=== PATIENT | female | born 1995 | race African-American/Black ===

== ENCOUNTER 2017-12-30 23:40 | Emergency (ER) | payer BC ==
[2017-12-31 00:14] VITALS: BP 111/61; PULSE 70; TEMP 97.9; BMI 20.1
[2017-12-31] MEDS ORDERED: FAMOTIDINE 20 MG TABLET PO ONE (01:29)
--- NOTE | 2017-12-31 01:29 | PDOC ---
History of Present Illness - General Chief Complaint: Pain Stated Complaint: EPIGASTRIC PAIN Time Seen by Provider: 12/31/17 00:41 - History of Present Illness Initial Comments: This 22-year-old woman with no significant past medical history presents with 2 week history of epigastric pain. Patient cannot clearly relate pain as improving or worsening with meals. No change in pain with position; patient states that pain is intermittent and improves without intervention at times. She denies alcohol use or overuse of nonsteroidal anti-inflammatory medications. She rarely has nausea and has not vomited. No history of diarrhea or constipation. No fever/chills. No previous history of GERD/ gastritis/peptic ulcer disease. Patient states that her last menstrual period was approximately 11/30/17. Although her periods have been irregular, she had bleeding for approximately 7 days which is typical of her usual menstrual periods. She reportedly had a positive at home urine test but had this repeated at [facility]: She was told there that the test was negative for . Past History - Past Medical History Allergies/Adverse Reactions: Allergies Allergy/AdvReac Type Severity Reaction Status Date / Time No Known Allergies Allergy Verified 02/15/14 21:55 Home Medications: Ambulatory Orders Famotidine [Pepcid] 40 mg PO DAILY #20 tablet 12/31/17 COPD: No - Immunization History Immunization Up to Date: Yes - Suicide/Smoking/Psychosocial Hx Smoking History: Former smoker Have you smoked in the past 12 months: No Number of Cigarettes Smoked Daily: 1 Information on smoking cessation initiated: No Substance Use Type: None Review of Systems - Review of Systems Able to Perform ROS?: Yes Comments:: 12 point review of systems is negative except for what is noted in the history of present illness *Physical Exam - Vital Signs Last Vital Signs Temp Pulse Resp BP Pulse Ox 97.9 F 70 16 111/61 100 12/30/17 23:41 12/30/17 23:41 12/30/17 23:41 12/30/17 23:41 12/30/17 23:41 - Physical Exam Comments: GENERAL: An adult female, alert and oriented 3, in no acute distress HEAD: Normal with no signs of trauma. EYES: PERRLA, EOMI, sclera anicteric, conjunctiva clear. ENT: Ears normal, nares patent, oropharynx clear without exudates. Moist mucous membranes. NECK: Normal range of motion, supple without lymphadenopathy, JVD, or masses. LUNGS: Breath sounds equal, clear to auscultation bilaterally. No wheezes, and no crackles. HEART:Regular rate and rhythm, normal S1 and S2 without murmur, rub or gallop. ABDOMEN:.normal bowel sounds; mild epigastric tenderness without rebound or involuntary guarding; no Eldridge's sign. No other tenderness/masses EXTREMITIES: Normal range of motion, no edema. No clubbing or cyanosis. No erythema, or tenderness. NEUROLOGICAL: Cranial nerves II through XII grossly intact. Normal speech. No focal neurological deficits. MUSCULOSKELETAL: Back non-tender to palpation, no CVA tenderness SKIN: Warm, Dry, normal turgor, no rashes or lesions noted. Progress Note - Progress Note Progress Note: Patient given Pepcid 40 mg by mouth; UA dipstick is completely normal and PGU is negative. Clinical presentation most consistent with either GERD/mild gastritis or very early peptic ulcer disease. 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 (patient has no medical follow-up; she is been given 's referral information for follow-up within the next 5-7 days.) If the patient has worsening gastric discomfort or develops new vomiting/fever, she should return to the ER *DC/Admit/Observation/Transfer Diagnosis at time of Disposition: Epigastric pain - Discharge Dispostion Disposition: HOME Condition at time of disposition: Stable - Prescriptions Prescriptions: Famotidine [Pepcid] 40 mg PO DAILY #20 tablet - Referrals Referrals: Esau Houser DO [Staff Physician] - - Patient Instructions Printed Discharge Instructions: DI for Epigastric Pain Additional Instructions: Pepcid 40 mg daily Eat 6 small meals each day; avoid smoking/alcohol Elevate head with extra pillow at night Return to ER if you have severe abdominal pain, vomiting or fever Follow-up with Dr Houser(stomach doctor) within the next week - Post Discharge Activity
[2017-12-31] MEDS ORDERED: FAMOTIDINE 20 MG TABLET ONE (01:31)
[2017-12-31 02:06] LABS: URINE APPEARANCE CLEAR; URINE BILIRUBIN NEGATIVE (<2.0 mg/dL); URINE COLOR COLORLESS; URINE GLUCOSE (UA) NEGATIVE (NEGATIVE); URINE KETONE NEGATIVE (NEGATIVE); URINE LEUK ESTERASE NEGATIVE (NEGATIVE); URINE NITRITE NEGATIVE (NEGATIVE); URINE PROTEIN NEGATIVE (NEGATIVE); URINE UROBILINOGEN NEGATIVE mg/dL (0.2-1.0)
== END 2017-12-31 02:31 | disposition home or self-care (01) ==
LOC: FER 23:40
DX: R10.13 Epigastric pain (principal)
CPT/HCPCS: 81003; 84703; 99282-25

== ENCOUNTER 2019-11-02 18:50 | Inpatient (IN) | payer BC ==
[2019-11-02 20:51] LABS: BASO % 0.2 % (0-2.0); EOS % 0.5 % (0-4.5); HEMATOCRIT 31.8 % (32.4-45.2); HEMOGLOBIN 10.2 GM/dL (10.7-15.3); LYMPH % 18.9 % (8-40); MCH 26.6 pg (25.7-33.7); MCHC 32.1 g/dl (32.0-36.0); MEAN CELL VOLUME 82.7 fl (80-96); MEAN PLT VOLUME 8.7 fl (7.5-11.1); MONO % 8.6 % (3.8-10.2); NEUT % 71.8 % (42.8-82.8); PLATELET COUNT 231 K/MM3 (134-434); RBC 3.84 M/mm3 (3.60-5.2); RDW 13.2 % (11.6-15.6)
[2019-11-02 20:57] VITALS: BMI 25.5
[2019-11-02 21:03] LABS: INR 0.97 (0.83-1.09); PROTHROMBIN TIME (PATIENT) 11.4 SEC (9.7-13.0)
[2019-11-02 21:06] LABS: ACTIVATED PTT 27.6 SECONDS (25.2-36.5)
[2019-11-02 21:18] LABS: BLOOD UREA NITROGEN 8.3 mg/dL (7-18); CALCIUM 8.8 mg/dL (8.5-10.1); CREATININE 0.5 mg/dL (0.55-1.3); POTASSIUM 3.9 mmol/L (3.5-5.1)
--- NOTE | 2019-11-02 22:02 | HP ---
Past Medical History - Primary Care Physician PCP:: Bridger Naik - Admission Chief Complaint: 40,3 weeks, oligohydramnions, for labor induction History of Present Illness: 23yo f 40.3 weeks, with THERESE 5 referred for induction of labor , cx 2 cm 70 vx -3 mi, fhr cat 1, irregular contraction, risks associated with induction discussed History Source: Patient Limitations to Obtaining History: No Limitations - Past Medical History ...: 1 ...Para: 0 ...Term: 0 ...: 0 ...Spon : 0 ...Induced : 0 ...Living Children: 0 ...Multiple Gestation: 0 ...LMP: 01/13/19 ... Weeks Gestation by Dates: 41.6 ...EDC by Dates: 10/20/19 ...EDC by Sono: 10/30/19 - Past Surgical History Hx Myomectomy: No Hx Transabdominal Cerclage: No - Smoking History Smoking history: Never smoked Have you smoked in the past 12 months: No Aproximately how many cigarettes per day: 1 - Alcohol/Substance Use Hx Alcohol Use: No - Social History History of Recent Travel: No Home Medications - Allergies Allergies/Adverse Reactions: Allergies Allergy/AdvReac Type Severity Reaction Status Date / Time No Known Allergies Allergy Verified 02/15/14 21:55 - Home Medications Home Medications: Ambulatory Orders Famotidine [Pepcid] 40 mg PO DAILY #20 tablet 12/31/17 Review of Systems - Review of Systems Constitutional: reports: No Symptoms Eyes: reports: No Symptoms HENT: reports: No Symptoms Neck: reports: No Symptoms Cardiovascular: reports: No Symptoms Respiratory: reports: No Symptoms Gastrointestinal: reports: No Symptoms Genitourinary: reports: No Symptoms Breasts: reports: No Symptoms Reported Musculoskeletal: reports: No Symptoms Integumentary: reports: No Symptoms Neurological: reports: No Symptoms Endocrine: reports: No Symptoms Hematology/Lymphatic: reports: No Symptoms Psychiatric: reports: No Symptoms Physical Exam - Maternity Vital Signs: Vital Signs Temperature 98.1 F 11/02/19 20:49 Pulse Rate 81 11/02/19 20:49 Respiratory Rate 18 11/02/19 20:49 Blood Pressure 125/76 11/02/19 20:49 O2 Sat by Pulse Oximetry (%) Constitutional: Yes: Well Nourished, No Distress, Calm Eyes: Yes: WNL, Conjunctiva Clear, EOM Intact HENT: Yes: WNL, Atraumatic, Normocephalic Neck: Yes: WNL, Supple, Trachea Midline Cardiovascular: Yes: WNL, Regular Rate and Rhythm Breast(s): Yes: WNL - Abdominal Exam/OB Fundal Height: 38 Number of Fetuses: Single Presentation: Vertex Contractions: Yes Regularity: Irregular Intensity: Unaware Monitor Mode: External Heart Rate Location: [facility] Category: I Accelerations: Non-Uniform Decelerations: None - Vaginal Exam/OB Vaginal Bleeding: No Speculum Exam: No Dilatation (cm): 2 Effacement (%): 70 Amniotic Membrane Status: Intact Presentation: Vertex/Position Station: -3 - Physical Exam Edema: Yes Edema: LLE: Trace, RLE: Trace Deep Tendon Reflex Grade: Normal +2 ...Motor Strength: WNL Psychiatric: Yes: WNL - Labs Lab Results: CBC, BMP 11/02/19 20:15 11/02/19 20:15 Hemorrhage Risk Assessment - Risk Factors Medium Risk Factors: Yes: None High Risk Factors: Yes: None Risk Score: 1 Risk Level: Medium Risk Problem List - Problems (1) Post term over 40 weeks Code(s): O48.0 - POST-TERM (2) Oligohydramnios antepartum Code(s): O41.00X0 - OLIGOHYDRAMNIOS, UNSP TRIMESTER, NOT APPLICABLE OR UNSP Qualifiers: Fetus number: single or unspecified fetus Qualified Code(s): O41.00X0 - Oligohydramnios, unspecified trimester, not applicable or unspecified Assessment/Plan admit fhm cervidil induction
[2019-11-02] MEDS: DEXTROSE 5%-LACTATED RINGERS 1,000 ML IV SCH (23:01)
[2019-11-02] MEDS ORDERED: PROMETHAZINE HCL 25 MG/1 ML VIAL IVPUSH ONE (23:37)
[2019-11-02] MEDS ORDERED: BUTORPHANOL TARTRATE 1 MG/ML VIAL IVPUSH PRN (23:37)
[2019-11-02] MEDS ORDERED: OXYTOCIN 30 UNITS in 0.9% NS 30 UNIT/500 ML INFUS.BAG IVPB ONE (23:54)
[2019-11-03] MEDS: OXYTOCIN 30 UNITS in 0.9% NS 30 UNIT/500 ML INFUS.BAG IVPB SCH (00:37)
--- NOTE | 2019-11-03 07:52 | PN ---
Progress Note (short form) - Note Progress Note: cx2 cm, 80 vx -2 mi , bulging , fhr cat1 , irregular contraction , on pitocin AROM, clear plan cont. induction Problem List - Problems (1) Post term over 40 weeks Code(s): O48.0 - POST-TERM (2) Oligohydramnios antepartum Code(s): O41.00X0 - OLIGOHYDRAMNIOS, UNSP TRIMESTER, NOT APPLICABLE OR UNSP Qualifiers: Fetus number: single or unspecified fetus Qualified Code(s): O41.00X0 - Oligohydramnios, unspecified trimester, not applicable or unspecified
[2019-11-03] MEDS: DEXTROSE 5%-LACTATED RINGERS 1,000 ML IV SCH (11:00)
[2019-11-03] MEDS ORDERED: BUTORPHANOL TARTRATE 2 MG/ML VIAL ONE (11:58)
[2019-11-03] MEDS ORDERED: PROMETHAZINE HCL 25 MG/1 ML VIAL ONE (11:58)
[2019-11-03] MEDS ORDERED: OXYTOCIN 20 UNITS in 0.9% NS 20 UNIT/1,000 ML INFUS.BAG IV ONE (14:16)
--- NOTE | 2019-11-03 14:32 | PN ---
Progress Note (short form) - Note Progress Note: cx full , 100 vx 1+ , fhr cat 1, regular contraction Problem List - Problems (1) Post term over 40 weeks Code(s): O48.0 - POST-TERM (2) Oligohydramnios antepartum Code(s): O41.00X0 - OLIGOHYDRAMNIOS, UNSP TRIMESTER, NOT APPLICABLE OR UNSP Qualifiers: Fetus number: single or unspecified fetus Qualified Code(s): O41.00X0 - Oligohydramnios, unspecified trimester, not applicable or unspecified
[2019-11-03] MEDS ORDERED: WITCH HAZEL 50% (TUCKS) 40 PAD/JAR PAD TP PRN (14:47)
[2019-11-03] MEDS ORDERED: IBUPROFEN 600 MG TABLET (FP) PO PRN (14:47)
[2019-11-03] MEDS ORDERED: BENZOCAINE 28 GM HEMORRHOIDAL OINTMENT TP PRN (14:47)
[2019-11-03] MEDS ORDERED: BENZOCAINE 20% 57 GM BOTTLE TP PRN (14:47)
[2019-11-03] MEDS ORDERED: BISACODYL 10 MG SUPP.RECT RC PRN (14:47)
[2019-11-03] MEDS ORDERED: ACETAMINOPHEN 325 MG TABLET (FP) PO PRN (14:47)
[2019-11-03] MEDS ORDERED: METHYLERGONOVINE MALEATE 0.2 MG/1 ML AMP IM PRN (14:47)
--- NOTE | 2019-11-03 14:47 | PN ---
Delivery - Delivery Vaginal Delivery: Spontaneous Type of Anesthesia: None (cx full , head on pernium, head deliverd DONOVAN , no cord , ant and post shoulder with no difficulty , live baby boy , 9/9 , placenta complete , no laceration , ebl 300 cc , no complication, baby bonded with mom) Episiotomy/Laceration: None Delivery, Single - Feeding Plan Initial Plan: Exclusive throughout hospitalization
[2019-11-03] MEDS ORDERED: OXYTOCIN 20 UNITS in 0.9% NS 20 UNIT/1,000 ML INFUS.BAG IV SCH (15:00)
[2019-11-03 15:40] LABS: CORD HCO3 24.4 mmHg (20-29); CORD PCO2 70.3 mmHg (30-78); CORD pH 7.158 (7.14-7.44)
[2019-11-03 15:41] LABS: CORD BASE EXCESS -4.7 mmol/L (0-2); CORD HCO3 21.9 mmHg (20-29); CORD PCO2 46.2 mmHg (30-78); CORD pH 7.294 (7.14-7.44)
[2019-11-03] MEDS: FERROUS SO4 325 MG TABLET (FP) PO SCH (17:44)
[2019-11-04] MEDS: DEXTROSE 5%-LACTATED RINGERS 1,000 ML IV SCH (01:37)
[2019-11-04] MEDS: OXYTOCIN 30 UNITS in 0.9% NS 30 UNIT/500 ML INFUS.BAG IVPB SCH (01:38)
[2019-11-04] MEDS: FERROUS SO4 325 MG TABLET (FP) PO SCH ×2 (08:14→17:53)
[2019-11-04] MEDS: PRENATAL VITAMINS W/ FOLIC ACID TABLET (FP) PO SCH (09:26)
[2019-11-04 09:53] LABS: BASO % 0.1 % (0-2.0); EOS % 0.6 % (0-4.5); HEMATOCRIT 28.9 % (32.4-45.2); HEMOGLOBIN 9.1 GM/dL (10.7-15.3); LYMPH % 12.4 % (8-40); MCHC 31.5 g/dl (32.0-36.0); MEAN CELL VOLUME 82.7 fl (80-96); MEAN PLT VOLUME 8.5 fl (7.5-11.1); MONO % 6.5 % (3.8-10.2); NEUT % 80.4 % (42.8-82.8); PLATELET COUNT 196 K/MM3 (134-434); RDW 13.7 % (11.6-15.6); WHITE BLOOD COUNT 11.3 K/mm3 (4.0-10.0)
--- NOTE | 2019-11-04 11:38 | PN ---
Progress Note (short form) - Note Progress Note: ppd 1, s/p , no c/o ,voids ok, no excess vaginal bleeding CBC, BMP 11/04/19 09:13 11/02/19 20:15 Last Vital Signs Temp Pulse Resp BP Pulse Ox 98.8 F 88 20 135/56 L 100 11/04/19 10:00 11/04/19 10:00 11/04/19 10:00 11/04/19 10:00 11/03/19 16:00 abdomen soft, no distension, no cva uterus firm ,non tender lochia mild no calf tenderness plan ambulate ,d/c home in am Problem List - Problems (1) Post term over 40 weeks Code(s): O48.0 - POST-TERM (2) Oligohydramnios antepartum Code(s): O41.00X0 - OLIGOHYDRAMNIOS, UNSP TRIMESTER, NOT APPLICABLE OR UNSP Qualifiers: Fetus number: single or unspecified fetus Qualified Code(s): O41.00X0 - Ol igohydramnios, unspecified trimester, not applicable or unspecified
[2019-11-04] MEDS ORDERED: SENNOSIDES/DOCUSATE COMBO (SENNA PLUS) TABLET (UD) PO PRN (22:00)
[2019-11-05] MEDS: FERROUS SO4 325 MG TABLET (FP) PO SCH (08:42)
[2019-11-05 09:03] VITALS: BP 114/74; PULSE 78; TEMP 99.2
--- NOTE | 2019-11-05 09:26 | DS ---
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 Vital Signs: Vital Signs Temperature 99.2 F 11/05/19 09:01 Pulse Rate 78 11/05/19 09:01 Respiratory Rate 18 11/05/19 09:01 Blood Pressure 114/74 11/05/19 09:01 O2 Sat by Pulse Oximetry (%) 98 11/05/19 09:01 Constitutional: Yes: Well Nourished, No Distress, Calm Eyes: Yes: WNL, Conjunctiva Clear, EOM Intact HENT: Yes: WNL, Atraumatic, Normocephalic Neck: Yes: WNL, Supple, Trachea Midline Cardiovascular: Yes: WNL, Regular Rate and Rhythm Respiratory: Yes: WNL, Regular, CTA Bilaterally Gastrointestinal: Yes: WNL ...Rectal Exam: Yes: WNL Renal/: Yes: WNL ....Post : Yes: Uterus firm, Uterus non-tender, Slight lochia rubra Breast(s): Yes: WNL Musculoskeletal: Yes: WNL Extremities: Yes: WNL Edema: No Integumentary: Yes: WNL Neurological: Yes: WNL, Alert, Oriented ...Motor Strength: WNL Psychiatric: Yes: WNL, Alert, Oriented Labs: CBC, BMP 11/04/19 09:13 11/02/19 20:15 Delivery - Delivery Vaginal Delivery: Spontaneous Type of Anesthesia: None Episiotomy/Laceration: None EBL (cc): 300 Delivery, Single - Stages of Labor Date 1st Stage Initiatied: 11/03/19 Time 1st Stage Initiated: 08:00 Date 2nd Stage Initiated: 11/03/19 Time 2nd Stage Initiated: 14:20 Date of Delivery: 11/03/19 Time of Delivery: 14:36 Time Placenta Delivered: 14:40 Placenta: Yes: Spontaneous - 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 Present: No Gender: Male Weight: 7 lb 7 oz Position: Left, OA Total Hours ROM (Hrs/Mins): 7hrs - 1 Minute Total Score: 9 5 Minutes Total Score: 9 - Feeding Plan Initial Plan: Exclusive throughout hospitalization Discharge Summary Problems reviewed: Yes Reason For Visit: ADMIT INDUCTION OF LABOR Current Active Problems Oligohydramnios antepartum (Acute) Post term over 40 weeks (Acute) Procedures: Principal: Hospital Course: no complication Plan of Treatment: follow up 4 weeks in the office Condition: Good - Instructions Diet, Activity, Other Instructions: regular diet, no intercourse , follow up office 4 weeks, if fever, pain , heavy vaginal bleeding call md Referrals: Ap Sarah MD [Staff Physician] - Disposition: HOME - Home Medications Comprehensive Discharge Medication List: Ambulatory Orders Famotidine [Pepcid] 40 mg PO DAILY #20 tablet 12/31/17 Ibuprofen [Motrin -] 600 mg PO QID #28 tablet 11/03/19
[2019-11-05] MEDS: PRENATAL VITAMINS W/ FOLIC ACID TABLET (FP) PO SCH (10:10)
== END 2019-11-05 14:30 | disposition home or self-care (01) | DRG 807 ==
LOC: JLDR 18:50 → J3W 11-04 14:00
PROVIDERS: ADMIT Obstetrics & Gynecology; ATTEND Obstetrics & Gynecology
PROC: 3E0P7VZ Introduction of Hormone into Female Reproductive, Via Natural or Artificial Opening (ICD-10-PCS; principal; 2019-11-02)
PROC: 10E0XZZ Delivery of Products of Conception, External Approach (ICD-10-PCS; 2019-11-03)
PROC: 10907ZC Drainage of Amniotic Fluid, Therapeutic from Products of Conception, Via Natural or Artificial Opening (ICD-10-PCS; 2019-11-03)
DX: O41.03X0 Oligohydramnios, third trimester, not applicable or unspecified (principal); Z37.0 Single live birth; O48.0 Post-term pregnancy; Z3A.40 40 weeks gestation of pregnancy
CPT/HCPCS: 36415; 36600; 59409; 80048; 82803; 85025; 85610; 85730; 86780; 86850; 86900; 86901; 87389; U0003